=== PATIENT | female | born 1995 | race Caucasian/White ===

== ENCOUNTER 2019-09-01 18:16 | Emergency (ER) | payer OTHER ==
--- OUTSIDE RECORDS SUMMARY | 2019-09-01 18:26 | XMS REPORT | Continuity of Care Document ---
:1995 External Reference #:[id number] Author Name Ernestine Beard, [employer] (transmitted by agent of provider Romelia Nolasco) Address [address] [place] [id number] Care Team Providers Name Role Phone Jose Elias Franklin MD - Orthopaedic Care Team Information [employer] Att[employer] [phone] Surgery Problems Description No Information Available Social History Type Date Description Comments Sex Unknown ETOH Use Currently consumes alcohol socially Tobacco Use Start: Unknown Patient denies history of smoking Smoking Status Reviewed: 07/29/19 Patient denies history of smoking Allergies, Adverse Reactions, Alerts Active Allergies Reaction Severity Comments Date Amoxicillin Throat closes up 07/29/2019 Medications Active Medications SIG Qnty Indications Ordering Provider Date Azithromycin 2 tablets on day 6tabs H66.92 [place], 07/29/2019 250mg one, 1 tablet Ernestine Prince, [employer] Tablets daily on day 2-5 Albuterol Sulfate HFA As needed Unknown 108(90Base) mcg/Act Aerosol Immunizations Description No Information Available Vital Signs Date Vital Result Comment 07/29/2019 10:22am BP Systolic 103 mmHg BP Diastolic 69 mmHg Body Temperature 98.3 F Heart Rate 68 /min Respiratory Rate 18 /min Weight 110.50 lb O2 % BldC Oximetry 100 % Results Description No Information Available Procedures Description No Information Available Medical Devices Description No Information Available Encounters Type Date Location Provider Dx Diagnosis Office Visit 07/29/2019 [facility], R23.9 Unspecified skin 10:15a Ernestine Prince, [employer] changes H66.92 Otitis media, unspecified, left ear Assessments Date Code Description Provider 07/29/2019 R23.9 Unspecified skin changes Ernestine Beard, BIJAN 07/29/2019 H66.92 Otitis media, unspecified, left ear Ernestine Beard, BIJAN Plan of Treatment 07/29/2019 - Ernestine Beard, FNPR23.9 Unspecified skin changesReferral:Tiffany Gonzalez MD, XbiqcnwqalqC57.92 Otitis media, unspecified , left earNew Medication:Azithromycin 250 mg - 2 tablets on day one, 1 tablet daily on day 2-5Comments:Take zpack as directed, Get lots of rest. Maintain good clear fluid intake to stay well hydrated. Frequent handwashing to prevent spread of germs. Please avoid exposure to tobacco smoke and/or polluted air. Please follow-up with your primary care provider within 1 week for recheck. Functional Status Description No Information Available Mental Status Description No Information Available Referrals Refer to Dr Reason for Referral Status Appt Date Tiffany Gonzalez MD new lesion on her lest side Scheduled 08/07/2019 [facility] [address] [facility], [address] [place] [id number] [phone]
== END 2019-09-01 19:00 | disposition left against medical advice (07) ==
LOC: UCEAST 18:16
DX: Z53.21 Procedure and treatment not carried out due to patient leaving prior to being seen by health care provider (principal)